=== PATIENT | male | born 1955 | race Two or more races ===

== ENCOUNTER 2018-05-09 21:54 | Inpatient (IN) | payer BC ==
[~2018-05-09] VITALS: Ht 27.9 cm; Wt 5.0 kg
[2018-05-09] MEDS ORDERED: QUETIAPINE FUM100 MG (22:13)
[2018-05-09] MEDS ORDERED: LEXAPRO20 MG (22:13)
[2018-05-09] MEDS ORDERED: REQUIP3 MG (22:13)
[2018-05-09] MEDS ORDERED: OMEPRAZOLE40 MG (22:14)
[2018-05-09] MEDS ORDERED: TRUVADA 200 MG1 EACH (22:14)
[2018-05-14] MEDS ORDERED: BACTRIM DS TAB1 EACH PO (17:22)
== END 2018-05-14 17:52 | disposition home or self-care (01) | DRG 603 ==
LOC: ER 21:54 → MEDI 05-10 09:54
PROC: B44GZZZ Ultrasonography of Left Lower Extremity Arteries (ICD-10-PCS; principal; 2018-05-10)
PROC: B54CZZZ Ultrasonography of Left Lower Extremity Veins (ICD-10-PCS; 2018-05-10)
DX: L03.116 Cellulitis of left lower limb (principal); G25.81 Restless legs syndrome

== ENCOUNTER 2018-09-05 19:13 | Emergency (ER) | payer BC ==
[~2018-09-05] VITALS: Ht 180.3 cm; Wt 90.3 kg
[~2018-09-05 19:13] MED LIST: BACTRIM DS TAB1 EACH PO; LEXAPRO20 MG; OMEPRAZOLE40 MG; QUETIAPINE FUM100 MG; REQUIP3 MG; TRUVADA 200 MG1 EACH
== END 2018-09-05 21:01 | disposition home or self-care (01) ==
LOC: ER 19:13
DX: L03.116 Cellulitis of left lower limb (principal); L02.416 Cutaneous abscess of left lower limb; B96.89 Other specified bacterial agents as the cause of diseases classified elsewhere

== ENCOUNTER 2020-07-09 20:04 | Emergency (ER) | payer OTHER, BC ==
[~2020-07-09] VITALS: Ht 180.3 cm; Wt 92.1 kg
[2020-07-09] MEDS ORDERED: OMEPRAZOLE MAGN20 MG (20:22)
[2020-07-09] MEDS ORDERED: ZESTRIL5 MG (20:22)
[2020-07-09] MEDS ORDERED: QUETIAPINE FUM400 M1 (20:22)
[2020-07-09] MEDS ORDERED: TRUVADA 200 MG1 EACH (20:23)
[2020-07-09] MEDS ORDERED: ROPINIROLE HCL1 MG (20:23)
[2020-07-09] MEDS ORDERED: ESCITALOPRAM OX20 MG (20:23)
[2020-07-10] MEDS ORDERED: TAMS0.4C PO (01:05)
[2020-07-10] MEDS ORDERED: LEVOFLOXACIN500 MG PO (01:05)
[2020-07-10] MEDS ORDERED: ACETAMINOPHEN500 M1 PO (01:07)
== END 2020-07-10 01:46 | disposition home or self-care (01) ==
LOC: ER 20:04
DX: N40.0 Benign prostatic hyperplasia without lower urinary tract symptoms (principal); N41.8 Other inflammatory diseases of prostate; R31.29 Other microscopic hematuria; Z03.818 Encounter for observation for suspected exposure to other biological agents ruled out; R53.81 Other malaise; R51.9 Headache, unspecified